=== PATIENT | male | born 1965 | race Caucasian/White ===

== ENCOUNTER 2019-07-28 10:28 | Day surgery (SDC) | payer OTHER, MEDICAID, SELFPAY ==
[2019-07-20 15:00] VITALS: BMI 36.3
[2019-07-28] VITALS (15 sets, daily range): BP systolic 104–134; BP diastolic 68–94; PULSE 77–104; RESP 12–19; TEMP 36.2–36.7; O2SAT 92–96; BMI 36.3
[2019-07-28] MEDS: LACTATED RINGERS 1,000 ML 100 ML IV ×2 (10:42→12:07)
--- NOTE | 2019-07-28 10:51 | PM.PREOP ---
Pre-operative Note Interval Note History & Physical reviewed/Exam performed by Physician: Yes Changes to H&P: No
[2019-07-28] MEDS: CLINDAMYCIN 900 MG/50 ML PIGGYBACK 50 MG IV (11:18)
--- NOTE | 2019-07-28 11:55 | SUR.OPER ---
Supine on padded OR bed, head on pillow, arm padded and tucked at side, legs uncrossed, safety belt at thigh, tape over blanket over lower legs .
[2019-07-28] MEDS: BUPIVACAINE 0.25% (PF) VIAL 30 ML INJ (12:01)
--- NOTE | 2019-07-28 13:54 | PM.OP.1 ---
Operative Date/Time/Diagnoses Date of procedure: 07/28/19 Time of procedure: 13:54 Pre-op diagnosis: Umbilical hernia Recurring left inguinal hernia Post-op diagnosis: same Procedure & Clinicians Procedure: Laparoscopic repair of recurrent left inguinal, open umbilical hernia repair with Same procedure as scheduled: Yes Indications: This is a 54-year-old male with pressure prior left inguinal hernia repair with mesh who presents with a recurrence. In addition he has a umbilical hernia symptomatic. Surgeon: Best Keith Anesthesia Type: General Operative Notes Findings: Direct left inguinal hernia. small umbilical hernia less than 2 cm. Estimated Blood Loss (mL): 20 Procedure in detail: The patient was brought to the operating room and placed supine on the table. Bilateral sequential compression devices were applied. General anesthesia was induced and they were intubated with an endotracheal tube. A rajan cath was placed in sterile fashion. They received 900g clindaymycin prior to skin incision. They were prepped and draped in sterile fashion. A time out was performed to ensure the correct patient, procedure and necessary equipment within the operating room. The skin was infiltrated with 0.25% bupivicaine. A 1 cm infram umbilical midline incision was made. The umbilical stalk was elevated the fascia sharply incised and the abdomen entered traumatically. A 10mm balloon port was placed and pneumoperitoneum was established at 15mm Hg. Inspection of the abdomen demonstrated no evidence of injury upon entry. Two 5 mm ports were then placed under direct visualization in the right and left lower quadrant lateral to the rectus muscle. A left direct hernia was observed. There was no major right inguinal hernia. Mesh from the previous left inguinal hernia repair had caused signficant inflamatory process and this required meticulous dissection to fully expose. The vas deferns the spermatic vessels were identified and protected. The peritoneum 4 cm superior to the deep inguinal ring between the medial umbilical ligament and the anterior superior iliac spine was incised. The peritoneal flap was retracted and the preperitoneal tissue was dissected off the flap beginning lateral to the inferior epigastric artery and towards the ASIS and to posterior limit of the psoas muscle to develop the lateral aspect of the pocket. Next the peritoneum medial to the inferior epigastric was mobilized towards the median umbilical ligament to develop the medial aspect of the pocket and the direct defect was reduced. The space of Retzius was fully dissected such that the Gregor's ligament and the pubic symphysis were visible. Next, the peritoneum was mobilized off the the spermatic vessels and vas deferns. A large Bard 3D Max mesh was then placed into the abdomen and positioned such that the myopectineal orifice was completely covered with good overlap on all sides. The mesh was anchored to the pubic tubercle and to Gregor?s ligament. The peritoneal flap was then repositioned back to its original position and tacks were used to anchor it in position such that no bowel could herniate into the preperitoneal space. The area was examined for hemostasis. The 5mm trocars were removed under direct visualization and pneumoperitoneum was deflated through the umbilical trocar. The umbilical hernia was identified and was dissected off the umbilicus and circumferentially. The sac was reduced into the abdomen and the fascia was cleared from above.. The fascial edges were then reapproximated with a [id number] 0 PDS suture. The subcutaneous tissues were reapproximated using 3 0 Vicryl skin closed with 4 0 Monocryl upon by the application of Dermabond and Steri-Strips. Sponge instrument count at the end of the operation was correct. Patient tolerated procedure well was extubated and transferred to postoperative care unit in stable condition. The fascia at the umbilicus was closed with 0-Vicryl in figure of 8 fashion, skin closed with 4-0 Monocyl followed by Dermabond. The sponge and instrument count at the end of the case was correct. Both testicles were entirely within the scrotum at the end of the case. The patient emerged from anesthsia was extubated and transferred to recovery in stable condition. Complications: none Post-operative Condition: stable Disposition: same day surgery
[2019-07-28] MEDS: fentaNYL 100 MCG/2 ML INJ IV ×2 (14:10→14:35)
[2019-07-28] MEDS: OXYCODONE/ACETAMINOPHEN 5/325 TABLET 1 TAB PO (15:08)
[2019-07-28 16:13] LABS: Alanine Aminotransferase 48 IU/L (<50)
[2019-07-28 17:15] LABS: Hepatitis B Surface Antigen NEGATIVE s/c (NEGATIVE)
[2019-07-28 17:31] LABS: HIV 1 & 2 Ab/Ag 4th Gen Combo NEGATIVE (NEGATIVE); Hep C Virus Ab w/Reflex Quant NEGATIVE s/c (NEGATIVE)
[2019-07-30 15:22] LABS: Hepatitis B Surf Ab Qualitativ Nonreactive (Nonreactive)
== END 2019-07-28 15:40 | disposition home or self-care (01) ==
PROVIDERS: PCP Physician Assistant; Referring Provider Surgery; Visit Provider Surgery
PROC: 0YQ64ZZ Repair Left Inguinal Region, Percutaneous Endoscopic Approach (ICD-10-PCS; CPT 49651; principal; 2019-07-28 11:15)
PROC: (CPT 49651; 2019-07-28 11:15)
DX: K42.9 Umbilical hernia without obstruction or gangrene (principal); K40.91 Unilateral inguinal hernia, without obstruction or gangrene, recurrent
CPT/HCPCS: 49651; 49585; C1781; J2250; J2704; J3010

== ENCOUNTER 2022-09-10 11:43 | Emergency (ER) | payer OTHER, MEDICAID, SELFPAY ==
[2022-09-10 12:15] VITALS: BP 154/98; PULSE 89; RESP 17; TEMP 36.6; O2SAT 99
--- NOTE | 2022-09-10 12:22 | PC.NURSE ---
Pt reports foreign body accidentally stuck in rectum, unable to self remove. Constipation, only able to have minor bowel movements since.
--- NOTE | 2022-09-10 12:25 | DI.RAD.S_ITS ---
PROCEDURE: XR ACUTE ABDOMEN SERIES INDICATIONS: foreign body TECHNIQUE: One view chest and two views of the abdomen were acquired. COMPARISON: None. FINDINGS: Surgical changes and devices: None. Chest: Lungs are clear. Heart size is normal. No pleural effusions. No pneumoperitoneum. Abdomen: Bowel gas pattern is normal. No suspicious calcifications. Visualized solid organ contours appear normal. There is a linear radiodensity measuring 1.5 cm overlying the mid right hemiabdomen. Bones: No suspicious bony lesions. IMPRESSION: Linear radiodensity overlying the right mid hemiabdomen. Recommend correlation to potential foreign body. Dictated by: Kari Taylor M.D. on 09/10/2022 at 13:00 Approved by: Kari Taylor M.D. on 09/10/2022 at 13:03
--- NOTE | 2022-09-10 12:53 | DI.CT.S_ITS ---
PROCEDURE: CT ABDOMEN PELVIS WO CON INDICATIONS: Potential colonic foreign body, TECHNIQUE: Axial sections were acquired from the lung bases to the pubic symphysis. Coronal and sagittal reformats were performed. For radiation dose reduction, the following was used: automated exposure control, adjustment of mA and/or kV according to patient size. COMPARISON: [facility], CR, XR ACUTE ABDOMEN SERIES, 09/10/2022, 12:27. FINDINGS: Image quality: Excellent. Lung bases: Unremarkable. Heart: No significant findings. URINARY: Right Kidney: No stones or hydronephrosis. Right Ureter: No hydroureter. Left Kidney: No stones or hydronephrosis. Left Ureter: No hydroureter. Bladder: Normal wall thickness. No stones. ABDOMEN: Liver: Unremarkable. Gallbladder: Unremarkable. Biliary ducts: Unremarkable. Pancreas: Unremarkable. Spleen: Unremarkable. Adrenal Glands: Unremarkable. Stomach and Bowel: Stomach, small bowel loops, and colon are nonobstructive. There is a linear radiodensity corresponding to the radiodensity within the right hemiabdomen on x-ray seen on series 2, image 32. It appears to be extra luminal and may represent a surgical clip. Multiple linear radiodensities are noted in the lower right anterior pelvis also appearing to be extra luminal. Peritoneum: No abnormal intraperitoneal fluid. No free air. Ventral Wall: No hernia. Abdominal Nodes: No enlarged retroperitoneal or mesenteric lymph nodes. Vessels: Aorta and inferior vena cava are normal in size. PELVIS: Pelvic Organs: Unremarkable. Pelvic Nodes: Unremarkable. Miscellaneous: Bilateral fat containing inguinal hernias are present. Bones: Unremarkable. IMPRESSION: Focus of linear increased density in the anterior right hemiabdomen corresponding to x-ray abnormality may represent a surgical clip as it appears to be extra luminal in relation to bowel. Multiple foci of increased density are noted in the right anterior lower abdomen also suspected to be related to surgical clips as they appear to be extra luminal in relation to bowel. Dictated by: Kari Taylor M.D. on 09/10/2022 at 13:36 Approved by: Kari Taylor M.D. on 09/10/2022 at 13:49
--- NOTE | 2022-09-10 12:53 | ED_ITS ---
HPI - Skin/Abscess/Foreign Bdy General Chief complaint: Skin/Abscess/Foreign Body Stated complaint: unable to have a bowel movement Time Seen by Provider: 09/10/22 12:38 Source: patient Mode of arrival: Ambulatory Limitations: no limitations History of Present Illness HPI narrative: Patient is a 49-year-old male here for evaluation of concern for a rectal foreign body and unable to have bowel movement. He states that 3-5 days ago there was a sex toy that was placed in his rectum. He states that he fell asleep that night and has not been able to find it since then. He is unsure if it is still in his rectum/: Although he states that since that time he has been unable to have a bowel movement. No vomiting. No abdominal pain. He has had a hernia repair in the past but no other abdominal surgeries. No urinary symptoms. He did try enemas at home without any improvement. No fevers. Related Data Home Medications Medication Instructions Recorded Confirmed gabapentin 100 mg capsule 400 mg PO BID 07/01/19 08/06/19 lamotrigine 200 mg tablet See Rx Instructions .Route .COMPLEX 07/01/19 08/06/19 (Lamictal) trazodone 100 mg tablet 100 mg PO BEDTIME 07/01/19 08/06/19 alprazolam 0.5 mg tablet 0.5 mg PO DAILY 07/28/19 08/06/19 buspirone 10 mg tablet 10 mg PO DAILY 07/28/19 08/06/19 cetirizine 10 mg tablet 10 mg PO DAILY 07/28/19 08/06/19 cyclobenzaprine 10 mg tablet 10 mg PO TID 07/28/19 08/06/19 Previous Rx's Medication Instructions Recorded acetaminophen 325 mg capsule 650 mg PO QID PRN pain #60 caps 07/28/19 (Tylenol) oxycodone 5 mg tablet 5 mg PO Q6H PRN pain #40 tabs 07/28/19 oxycodone 5 mg tablet 5 mg PO Q4-6H PRN post surgical 07/31/19 pain #30 tabs Allergies Allergy/AdvReac Type Severity Reaction Status Date / Time penicillin G Allergy Intermediate RASH Verified 09/10/22 12:18 Review of Systems Constitutional Constitutional: Reports system reviewed and no additional complaints, except as documented Gastrointestinal Gastrointestinal: Reports system reviewed and no additional complaints, except as documented Genitourinary Genitourinary: Reports system reviewed and no additional complaints, except as documented Neurologic Neurologic: Reports system reviewed and no additional complaints, except as documented Patient History Medical History (Updated 09/10/22 @ 14:04 by Rell Stephens DO) Anxiety Bipolar 1 disorder Depression Hernia Shoulder arthritis Surgical History History of inguinal hernia repair Social History household members: family Smoking Status: Former smoker alcohol intake: never Smoking Status: Former smoker Substance Use Type: methamphetamine Exam Initial Vital Signs Initial Vital Signs: Vital Signs Temperature 98 F 09/10/22 12:15 Pulse Rate 89 09/10/22 12:15 Respiratory Rate 17 09/10/22 12:15 Blood Pressure 154/98 H 09/10/22 12:15 Pulse Oximetry 99 09/10/22 12:15 Oxygen Delivery Method Room Air 09/10/22 12:15 Const General: cooperative, comfortable and ill appearing [facility] Head: normal to inspection and normocephalic Resp Effort & Inspection: normal respiratory effort Auscultation: clear to auscultation bilaterally Cardio Rate: regular rate Rhythm: regular rhythm GI Inspection: normal to inspection and non-distended Palpation: soft, No firm and No tender Skin General: no rashes or lesions noted Neuro General: patient alert, patient awake and moves all extremities Extrem General: capillary refill normal Course Orders Ordered: ED Orders 09/10/22 12:25 XR acute abdomen series Stat 09/10/22 12:53 CT abdomen pelvis wo con Stat Discontinued Medications Lorazepam (Lorazepam 0.5 Mg Tablet) 1 mg PO NOW ONE Stop: 09/10/22 12:54 Last Admin: 09/10/22 13:10 Dose: 1 mg Documented By: MARCELL Vital Signs Vital signs: Vital Signs - 8 hr 09/10/22 12:15 Temperature 98 F Pulse Rate 89 Respiratory Rate 17 Blood Pressure 154/98 H Pulse Oximetry 99 Oxygen Delivery Method Room Air MDM - Skin/Abscess/Foreign Bdy Imaging Data Abdominal x-ray: Radiologist's Impression: PROCEDURE:? XR ACUTE ABDOMEN SERIES ? INDICATIONS:? foreign body ? TECHNIQUE:? One view chest and two views of the abdomen were acquired.? ? COMPARISON:? None. ? FINDINGS:? ? Surgical changes and devices:? None.? ? Chest:? Lungs are clear.? Heart size is normal.? No pleural effusions.? No pneumoperitoneum.? ? Abdomen:? Bowel gas pattern is normal.? No suspicious calcifications.? Visualized solid organ contours appear normal.? There is a linear radiodensity measuring 1.5 cm overlying the mid right hemiabdomen. ? Bones:? No suspicious bony lesions.? ? IMPRESSION:? Linear radiodensity overlying the right mid hemiabdomen.? Recommend correlation to potential foreign body. CT scan - abdomen/pelvis: Radiologist's Impression: PROCEDURE:? CT ABDOMEN PELVIS WO CON ? INDICATIONS:? Potential colonic foreign body, ? TECHNIQUE:? Axial sections were acquired from the lung bases to the pubic symphysis.? Coronal and sagittal reformats were performed.? For radiation dose reduction, the following was used: ?automated exposure control, adjustment of mA and/or kV according to patient size.? ? COMPARISON:? Loc[facility], CR, XR ACUTE ABDOMEN SERIES, 09/10/2022, 12:27. ? FINDINGS:? Image quality:? Excellent.? ? Lung bases:? Unremarkable.? ? Heart:? No significant findings. ? URINARY: Right Kidney: ? No stones or hydronephrosis.? Right Ureter:? No hydroureter.? ? Left Kidney: ? No stones or hydronephrosis. Left Ureter:? No hydroureter.? ? Bladder:? Normal wall thickness. No stones. ? ? ? ABDOMEN: Liver:? Unremarkable.? ? Gallbladder:? Unremarkable.? ? Biliary ducts:? Unremarkable.? ? Pancreas:? Unremarkable.? ? Spleen:? Unremarkable.? ? Adrenal Glands:? Unremarkable.? ? ? Stomach and Bowel:? Stomach, small bowel loops, and colon are nonobstructive.? There is a linear radiodensity corresponding to the radiodensity within the right lolly abdomen on x-ray seen on series 2, image 32. It appears to be extra luminal and may represent a surgical clip.? Multiple linear radiodensities are noted in the lower right anterior pelvis also appearing to be extra luminal. Peritoneum:? No abnormal intraperitoneal fluid.? No free air.? ? Ventral Wall: ? No hernia.? Abdominal Nodes:? No enlarged retroperitoneal or mesenteric lymph nodes.? Vessels:? Aorta and inferior vena cava are normal in size.? ? PELVIS: Pelvic Organs:? Unremarkable.? ? Pelvic Nodes: Unremarkable. Miscellaneous:? Bilateral fat containing inguinal hernias are present. ? Bones:? Unremarkable. ? IMPRESSION:? ? Focus of linear increased density in the anterior right hemiabdomen corresponding to x-ray abnormality may represent a surgical clip as it appears to be extra luminal in relation to bowel. ? Multiple foci of increased density are noted in the right anterior lower abdomen also suspected to be related to surgical clips as they appear to be extra luminal in relation to bowel. ? ? ? Dictated by: Kari Taylor M.D. on 09/10/2022 at 13:36 ? ? Approved by: Kari Taylor M.D. on 09/10/2022 at 13:49? MDM Narrative Medical decision making narrative: The x-ray was somewhat concerning about a foreign body in his right upper quadrant however on the CT scan these do appear to be extraluminal clips. He has no foreign body noted on the CT scan. He is no other signs of obstruction. Has a soft abdomen. No fevers. No urinary symptoms. No indication for antibiotics. No indication for surgical consultation. I did discuss this with the patient. He is obviously very anxious about the situation. We did discuss that we do not diagnosed constipation off of CT scans and that if he felt like he was constipated he could try laxatives at home. He was given return precautions. He expressed understanding and agreement. Discharge Plan Departure Patient Disposition: Home Clinical Impression: Constipation Instructions: DI for Constipation Activity Restrictions/Additional Instructions: On the CT scan there is no foreign body noted anywhere in the colon/abdomen. If you feel like your constipated you can try [id number] laxatives. Contact your primary doctor for a follow-up. Return to the emergency department for any new or worsening symptoms. Prescriptions: No Action lamotrigine [Lamictal] 200 mg tablet See Rx Instructions .ROUTE .COMPLEX Rx Instructions: 200 mg orally gabapentin 100 mg capsule 400 mg PO BID trazodone 100 mg tablet 100 mg PO BEDTIME oxycodone 5 mg tablet 5 mg PO Q4-6H PRN (Reason: post surgical pain) Qty: 30 0RF Rx Instructions: take 1-2 tabs every 4-6 hours as needed for post op pain. Wean off as soon as possible cyclobenzaprine 10 mg Tablet 10 mg PO TID cetirizine 10 mg Tablet 10 mg PO DAILY alprazolam 0.5 mg Tablet 0.5 mg PO DAILY buspirone 10 mg Tablet 10 mg PO DAILY oxycodone 5 mg tablet 5 mg PO Q6H PRN (Reason: pain) Qty: 40 0RF acetaminophen [Tylenol] 325 mg capsule 650 mg PO QID PRN (Reason: pain) Qty: 60 0RF Referrals: Ronit Dorman PA-C [Primary Care Provider] - Stand Alone Forms: Patient Portal/API
[2022-09-10] MEDS: LORazepam 0.5 MG TABLET 1 MG PO (13:10)
[2022-09-10 14:08] VITALS: BP 161/90; PULSE 65; RESP 18; O2SAT 99
== END 2022-09-10 14:09 | disposition home or self-care (01) ==
PROVIDERS: Emergency Provider Emergency Medicine; PCP Physician Assistant
DX: K59.00 Constipation, unspecified (principal); T18.5XXA Foreign body in anus and rectum, initial encounter
CPT/HCPCS: 74022; 74176; 99284

== ENCOUNTER 2022-09-12 21:31 | Emergency (ER) | payer OTHER, MEDICAID, SELFPAY ==
[2022-09-12 21:38] VITALS: BP 155/87; PULSE 90; RESP 28; TEMP 36.9; O2SAT 99; BMI 32.3
--- NOTE | 2022-09-12 21:46 | DI.RAD.S_ITS ---
PROCEDURE: XR CHEST 1V INDICATIONS: chest pain TECHNIQUE: One view of the chest was acquired. COMPARISON: None. FINDINGS: Surgical changes and devices: None. Lungs and pleura: Lungs are clear. No pleural effusions or pneumothorax. Mediastinum: Mediastinal contours appear normal. Heart size is normal. Bones and chest wall: No suspicious bony lesions. Overlying soft tissues appear unremarkable. IMPRESSION: 1. No acute cardiopulmonary disease. Dictated by: Edu Vargas M.D. on 09/12/2022 at 23:29 Approved by: Edu Vargas M.D. on 09/12/2022 at 23:29
[2022-09-12 22:40] LABS: PTT Partial Thromboplastin Tim 29 SECONDS (26-36)
[2022-09-12 22:54] LABS: Add Manual Diff / Slide Review NO; Basophils Absolute Auto 0 /uL (0-100); Basophils Percent Auto 0.4 % (0-2); Eosinophils Absolute Auto 200 /uL (0-450); Eosinophils Percent Auto 3.2 % (2-4); Hematocrit 40.9 % (41-53); Hemoglobin 13.6 g/dL (13.5-17.5); Lymphocytes Absolute Auto 1900 /uL (1100-4500); Lymphocytes Percent Auto 23.8 % (25-40); Mean Corpuscular HGB Conc 33.4 % (30-36); Mean Corpuscular Hemoglobin 30.6 PG (26-34); Mean Corpuscular Volume 91.8 fL (80-100); Monocytes Absolute Auto 600 /uL (0-900); Monocytes Percent Auto 8.1 % (3-14); Neutrophils Absolute Auto 5100 /uL (1500-7000); Neutrophils Percent Auto 64.5 % (50-75); Platelet Count 267 X10^3/uL (150-400); Red Blood Cell Count 4.45 X10^6/uL (4.5-5.9); Red Cell Distribution Width 14.4 % (11.6-14.8); White Blood Cell Count 7.9 X10^3/uL (4.5-11.0)
[2022-09-12 22:57] LABS: Alanine Aminotransferase 35 IU/L (<50); Albumin Globulin Ratio 1.3 (1.0-2.8); Alkaline Phosphatase 106 U/L (38-126); Aspartate Aminotransferase 29 IU/L (17-59); BUN Creatinine Ratio 18.6 (6-22); Bilirubin Total 0.3 mg/dL (0.2-1.3); Blood Urea Nitrogen 16 mg/dL (9-20); Carbon Dioxide 28 mmol/L (22-32); Chloride 102 mmol/L (98-107); Creatine Kinase 70 U/L (55-170); Estimated Glomerular Filt Rate > 60 mL/min (>60); Globulin 3.1 g/dL (1.7-4.1); Glucose 95 mg/dL (70-100); HEMOLYSIS 17 (0-50); Lipase 88 U/L (23-300); Potassium 4.1 mmol/L (3.4-5.1); Sodium 137 mmol/L (137-145); Total Protein 7.1 g/dL (6.3-8.2); Troponin I < 0.012 ng/mL (0.01-0.034)
[2022-09-13 01:26] LABS: Creatine Kinase 74 U/L (55-170)
[2022-09-13 01:39] LABS: Troponin I < 0.012 ng/mL (0.01-0.034)
--- NOTE | 2022-09-13 02:41 | ED.CHESTPAIN ---
HPI - Chest Pain General Chief Complaint: Chest Pain Stated Complaint: heart is beating out of his chest Time Seen by Provider: 09/12/22 22:45 Source: patient Mode of arrival: Ambulatory Limitations: no limitations History of Present Illness HPI narrative: 57-year-old male nonsmoker, prior illicit drug user (methamphetamines) presents with a chief complaint of the sensation of palpitations and racing heart. He specifically he states he felt like his heart was going to jump out of his chest. He denies any dizziness, weakness or lightheadedness. He admits that he is anxious because a few months ago he was told he might have coronary artery disease. He denies any significant caffeine, nicotine or alcohol use. He denies any shortness of breath, nausea or vomiting. Related Data Home Medications Medication Instructions Recorded Confirmed gabapentin 100 mg capsule 400 mg PO BID 07/01/19 08/06/19 lamotrigine 200 mg tablet See Rx Instructions .Route .COMPLEX 07/01/19 08/06/19 (Lamictal) trazodone 100 mg tablet 100 mg PO BEDTIME 07/01/19 08/06/19 alprazolam 0.5 mg tablet 0.5 mg PO DAILY 07/28/19 08/06/19 buspirone 10 mg tablet 10 mg PO DAILY 07/28/19 08/06/19 cetirizine 10 mg tablet 10 mg PO DAILY 07/28/19 08/06/19 cyclobenzaprine 10 mg tablet 10 mg PO TID 07/28/19 08/06/19 Previous Rx's Medication Instructions Recorded acetaminophen 325 mg capsule 650 mg PO QID PRN pain #60 caps 07/28/19 (Tylenol) oxycodone 5 mg tablet 5 mg PO Q6H PRN pain #40 tabs 07/28/19 oxycodone 5 mg tablet 5 mg PO Q4-6H PRN post surgical 07/31/19 pain #30 tabs Allergies Allergy/AdvReac Type Severity Reaction Status Date / Time penicillin G Allergy Intermediate RASH Verified 09/12/22 21:37 Review of Systems Review of Systems Narrative: GENERAL: Denies chills, fatigue, malaise, fever, sweats. HEENT: Denies sinus pain, ear pain, sore throat, difficulty swallowing, dizziness. RESPIRATORY: Denies dyspnea, cough, wheezing, hemoptysis, sputum. CARDIOVASCULAR: See HPI GASTROINTESTINAL: Denies nausea, vomiting, abdominal pain, diarrhea, constipation, melena. : Denies dysuria, frequency, incontinence, hematuria, urinary retention. MUSCULOSKELETAL: denies weakness, joint pain, or bony pain SKIN: Denies rash, skin lesions, or other NEUROLOGIC: Denies weakness, headache, numbness, change in speech, confusion, seizures, incoordination. PSYCHIATRIC: No concerning psychosocial issues. 12 point review of systems is negative except for those stated above Patient History Medical History (Updated 09/13/22 @ 02:52 by Kendall Zapata DO) Anxiety Bipolar 1 disorder Depression Hernia Shoulder arthritis Surgical History History of inguinal hernia repair Social History household members: family Smoking Status: Never smoker alcohol intake: never Smoking Status: Never smoker Substance Use Type: methamphetamine Exam Narrative Exam Narrative: GENERAL: [57] year old patient appears stated age. Well-developed patient, in mild distress. HEAD: Atraumatic. Normocephalic. EYES: Pupils equal round and reactive. Extraocular motions intact. No scleral icterus. No injection or drainage. ENT: Nose without bleeding, purulent drainage. Throat without erythema, tonsillar hypertrophy or exudate. Airway patent. NECK: Trachea midline. Non tender CARDIOVASCULAR: Regular rate and rhythm without murmurs, gallops, or rubs. RESPIRATORY: Clear to auscultation. Breath sounds equal bilaterally. No wheezes, rales, or rhonchi. GASTROINTESTINAL: Abdomen soft, non-tender, nondistended. EXTREMITIES: No edema or joint tenderness. BACK: Nontender without deformity or crepitance. No flank tenderness. NEURO: AOx3. SKIN: No rash or erythema of visible areas Initial Vital Signs Initial Vital Signs: Vital Signs Temperature 98.5 F 09/12/22 21:38 Pulse Rate 90 09/12/22 21:38 Respiratory Rate 28 H 09/12/22 21:38 Blood Pressure 155/87 H 09/12/22 21:38 Pulse Oximetry 99 09/12/22 21:38 Oxygen Delivery Method Room Air 09/12/22 21:38 Course Orders Ordered: Discontinued Medications Aspirin (Aspirin 81 Mg Chew Tab) 324 mg PO NOW ONE Stop: 09/12/22 21:47 Vital Signs Vital signs: Vital Signs - 8 hr 09/12/22 21:38 Temperature 98.5 F Pulse Rate 90 Respiratory Rate 28 H Blood Pressure 155/87 H Pulse Oximetry 99 Oxygen Delivery Method Room Air MDM - Chest Pain Lab Data 09/12/22 22:23 09/12/22 22:23 Labs: Lab Results 09/12/22 09/12/22 09/12/22 Range/Units 22:23 22:23 22:23 WBC 7.9 (4.5-11.0) X10^3/uL RBC 4.45 L (4.5-5.9) X10^6/uL Hgb 13.6 (13.5-17.5) g/dL Hct 40.9 L (41-53) % MCV 91.8 (80-100) fL MCH 30.6 (26-34) PG MCHC 33.4 (30-36) % RDW 14.4 (11.6-14.8) % Plt Count 267 (150-400) X10^3/uL Neut % (Auto) 64.5 (50-75) % Lymph % (Auto) 23.8 L (25-40) % Webb % (Auto) 8.1 (3-14) % Eos % (Auto) 3.2 (2-4) % Baso % (Auto) 0.4 (0-2) % Neut # (Auto) 5100 (6906-7128) /uL Lymph # (Auto) 1900 (7438-8255) /uL Webb # (Auto) 600 (0-900) /uL Eos # (Auto) 200 (0-450) /uL Baso # (Auto) 0 (0-100) /uL PT 11.0 (10.1-12.7) SECONDS INR 1.0 (0.9-1.3) APTT 29 (26-36) SECONDS Sodium 137 (137-145) mmol/L Potassium 4.1 (3.4-5.1) mmol/L Chloride 102 (98-107) mmol/L Carbon Dioxide 28 (22-32) mmol/L BUN 16 (9-20) mg/dL Creatinine 0.86 (0.66-1.25) mg/dL Estimated GFR > 60 (>60) mL/min BUN/Creatinine Ratio 18.6 (6-22) Glucose 95 (70-100) mg/dL Calcium 9.0 (8.4-10.2) mg/dL Magnesium 2.0 (1.6-2.3) mg/dL Total Bilirubin 0.3 (0.2-1.3) mg/dL AST 29 (17-59) IU/L ALT 35 (<50) IU/L Alkaline Phosphatase 106 (38-126) U/L Total Creatine Kinase 70 (55-170) U/L CK-MB (CK-2) TNP CK-MB (CK-2) Rel Index TNP Troponin I < 0.012 (0.01-0.034) ng/mL Total Protein 7.1 (6.3-8.2) g/dL Albumin 4.0 (3.5-5.0) g/dL Globulin 3.1 (1.7-4.1) g/dL Albumin/Globulin Ratio 1.3 (1.0-2.8) Lipase 88 (23-300) U/L 09/13/22 Range/Units 01:05 WBC (4.5-11.0) X10^3/uL RBC (4.5-5.9) X10^6/uL Hgb (13.5-17.5) g/dL Hct (41-53) % MCV (80-100) fL MCH (26-34) PG MCHC (30-36) % RDW (11.6-14.8) % Plt Count (150-400) X10^3/uL Neut % (Auto) (50-75) % Lymph % (Auto) (25-40) % Webb % (Auto) (3-14) % Eos % (Auto) (2-4) % Baso % (Auto) (0-2) % Neut # (Auto) (1204-2202) /uL Lymph # (Auto) (5431-9227) /uL Webb # (Auto) (0-900) /uL Eos # (Auto) (0-450) /uL Baso # (Auto) (0-100) /uL PT (10.1-12.7) SECONDS INR (0.9-1.3) APTT (26-36) SECONDS Sodium (137-145) mmol/L Potassium (3.4-5.1) mmol/L Chloride (98-107) mmol/L Carbon Dioxide (22-32) mmol/L BUN (9-20) mg/dL Creatinine (0.66-1.25) mg/dL Estimated GFR (>60) mL/min BUN/Creatinine Ratio (6-22) Glucose (70-100) mg/dL Calcium (8.4-10.2) mg/dL Magnesium (1.6-2.3) mg/dL Total Bilirubin (0.2-1.3) mg/dL AST (17-59) IU/L ALT (<50) IU/L Alkaline Phosphatase (38-126) U/L Total Creatine Kinase 74 (55-170) U/L CK-MB (CK-2) TNP CK-MB (CK-2) Rel Index TNP Troponin I < 0.012 (0.01-0.034) ng/mL Total Protein (6.3-8.2) g/dL Albumin (3.5-5.0) g/dL Globulin (1.7-4.1) g/dL Albumin/Globulin Ratio (1.0-2.8) Lipase (23-300) U/L MDM Narrative Medical decision making narrative: [57] year old patient presents with racing heart Multiple etiologies for patient's symptoms considered including, but not limited to: [Anxiety, electrolyte abnormality, arrhythmia versus other] Prior Charts reviewed in our EMR Primary Historian: patient Labs reviewed and interpreted by myself: No significant abnormal findings, troponin negative x2, electrolytes and renal function within normal limits, no signs of leukocytosis or anemia Imaging reviewed: No acute process Patient's symptoms improved over duration of stay with above-stated therapies. History and physical exam are reassuring, no lab abnormalities, EKG notes a normal sinus rhythm and his heart rate is normal while on cardiac monitoring. Findings and discharge diagnosis discussed with patient/family followed by verbalization of understanding Return precautions discussed with patient/family whom verbalize understanding of diagnosis and plan Discharge Plan Departure Patient Disposition: Home Clinical Impression: Heart palpitations Instructions: DI for Arrhythmias Activity Restrictions/Additional Instructions: *You have been diagnosed with [palpitations. As we discussed your history and physical exam as well as labs, EKG and imaging is very reassuring and there is no evidence of heart attack electrolyte abnormality other significant finding] *What to do: *Please continue to take your regular medications as directed. * as we discussed if your concern about constipation there are multiple [id number] options such as Dulcolax, MiraLax, even magnesium citrate which can all be obtained at any local pharmacy without a prescription *Please follow up with your primary care provider in 2-3 days, call for an appointment. Let them know you were seen in the Emergency Department and that we ask that you be seen in follow up. We will electronically transmit a record of today's note if your PCP is in our system *If you do not have a primary care provider please contact the [facility] Resource line at [phone]. They will ask some questions about your medical history and help get you set up with a doctor in the community. *Return to Emergency Department if you should have any new, worsening or concerning symptoms, such as [fever greater than 101 F, shaking chills, worsening pain, persistent vomiting or other bothersome symptoms] Prescriptions: No Action lamotrigine [Lamictal] 200 mg tablet See Rx Instructions .ROUTE .COMPLEX Rx Instructions: 200 mg orally gabapentin 100 mg capsule 400 mg PO BID trazodone 100 mg tablet 100 mg PO BEDTIME oxycodone 5 mg tablet 5 mg PO Q4-6H PRN (Reason: post surgical pain) Qty: 30 0RF Rx Instructions: take 1-2 tabs every 4-6 hours as needed for post op pain. Wean off as soon as possible cyclobenzaprine 10 mg Tablet 10 mg PO TID cetirizine 10 mg Tablet 10 mg PO DAILY alprazolam 0.5 mg Tablet 0.5 mg PO DAILY buspirone 10 mg Tablet 10 mg PO DAILY oxycodone 5 mg tablet 5 mg PO Q6H PRN (Reason: pain) Qty: 40 0RF acetaminophen [Tylenol] 325 mg capsule 650 mg PO QID PRN (Reason: pain) Qty: 60 0RF Referrals: Ronit Dorman PA-C [Primary Care Provider] - Stand Alone Forms: Patient Portal/API
[2022-09-13 02:47] VITALS: BP 132/87; PULSE 87; RESP 22; O2SAT 97
[2022-09-13 02:57] VITALS: BP 128/87; PULSE 84; O2SAT 97
== END 2022-09-13 03:00 | disposition home or self-care (01) ==
PROVIDERS: Emergency Provider Emergency Medicine; PCP Physician Assistant
DX: R00.2 Palpitations (principal)
CPT/HCPCS: 36415; 71045; 80053; 82550; 83690; 83735; 84484; 85025; 85610; 85730; 93005; 99283; 99284

== ENCOUNTER 2023-05-07 16:21 | Emergency (ER) | payer OTHER, MEDICAID, SELFPAY ==
[2023-05-07 16:32] VITALS: BP 136/81; PULSE 92; RESP 16; TEMP 36.6; O2SAT 97; BMI 32.8
--- NOTE | 2023-05-07 17:06 | ED.EAR ---
HPI - Ear Problem <Kavon Dickinson PA-C - Last Filed: 05/07/23 17:13> General Chief complaint: Ear Stated complaint: something in rt ear Time Seen by Provider: 05/07/23 16:41 Source: patient Mode of arrival: Ambulatory History of Present Illness HPI Narrative: 58-year-old male presents to the ED with a sensation of some moving foreign objects inside his bilateral ears. Patient states that he was in an apartment with a lot of bugs such as gnats and that he feels there is flying insects inside bilateral ear canals. Patient denies any changes in hearing. Patient does endorse using a Q-tip to attempt getting the objects out. Related Data Home Medications Medication Instructions Recorded Confirmed gabapentin 100 mg capsule 400 mg PO BID 07/01/19 08/06/19 lamotrigine 200 mg tablet See Rx Instructions .Route .COMPLEX 07/01/19 08/06/19 (Lamictal) trazodone 100 mg tablet 100 mg PO BEDTIME 07/01/19 08/06/19 alprazolam 0.5 mg tablet 0.5 mg PO DAILY 07/28/19 08/06/19 buspirone 10 mg tablet 10 mg PO DAILY 07/28/19 08/06/19 cetirizine 10 mg tablet 10 mg PO DAILY 07/28/19 08/06/19 cyclobenzaprine 10 mg tablet 10 mg PO TID 07/28/19 08/06/19 Previous Rx's Medication Instructions Recorded acetaminophen 325 mg capsule 650 mg (2 x 325 mg) PO QID PRN 07/28/19 (Tylenol) pain #60 caps oxycodone 5 mg tablet 5 mg PO Q6H PRN pain #40 tabs 07/28/19 oxycodone 5 mg tablet 5 mg PO Q4-6H PRN post surgical 07/31/19 pain #30 tabs Allergies Allergy/AdvReac Type Severity Reaction Status Date / Time penicillin G Allergy Intermediate RASH Verified 05/07/23 16:36 Review of Systems <Kavon Dickinson PA-C - Last Filed: 05/07/23 17:13> Constitutional Constitutional: Denies chills, Denies fatigue, Denies fever(s), Denies frequent falls, Denies lethargy and Denies weakness Eyes Eyes: Denies change in vision, Denies eye discharge, Denies irritation and Denies loss of vision ENT Ears, Nose, Mouth, and Throat: Denies change in voice, Denies dizziness, Denies neck pain, Denies sore throat and Denies throat swelling Comments: Sensation of insects or moving objects inside bilateral ear canals Cardiovascular Cardiovascular: Denies chest pain, Denies irregular heart rhythm, Denies lightheadedness, Denies palpitations, Denies dyspnea, Denies dyspnea on exertion and Denies orthopnea Respiratory Respiratory: Denies cough, Denies dyspnea, Denies dyspnea on exertion and Denies wheezing Gastrointestinal Gastrointestinal: Denies abdominal pain, Denies change in bowel habits, Denies diarrhea, Denies nausea and Denies vomiting Musculoskeletal Musculoskeletal: Denies neck pain and Denies numbness Integumentary/Breasts Skin/Breast: Denies pruritus, Denies erythema, Denies rash and Denies wounds Neurologic Neurologic: Denies behavioral changes, Denies confusion, Denies dizziness, Denies frequent falls, Denies loss of vision, Denies numbness and Denies weakness Psychiatric Psychiatric: Denies anxiety, Denies behavioral changes, Denies confusion, Denies depression, Denies homicidal ideation and Denies suicidal ideation Endocrine Endocrine: Denies fatigue, Denies flushing and Denies palpitations Hematologic/Lymphatic Hematologic/Lymphatic: Denies easy bruising Allergic/Immunologic Allergic/Immunologic: Denies urticaria, Denies throat swelling and Denies wheezing Patient History <Kavon Dickinson PA-C - Last Filed: 05/07/23 17:13> Medical History (Updated 05/07/23 @ 17:04 by Kavon Dickinson PA-C) Bipolar 1 disorder Hernia Anxiety Depression Shoulder arthritis Surgical History History of inguinal hernia repair Social History household members: family Smoking Status: Never smoker alcohol intake: never Smoking Status: Never smoker Substance Use Type: marijuana and methamphetamine Exam <Kavon Dickinson PA-C - Last Filed: 05/07/23 17:13> Narrative Exam Narrative: Const General:?cooperative, healthy appearing and comfortable [facility] Head:?normal to inspection Ears:?hearing grossly normal bilaterally; no foreign objects or insects noted in bilateral ear canals; there are 1-2 scabs in each ear canal consistent with trauma such as repetitive Q-tip use Nose:?external nose normal Face and sinus:?normal facial exam and sinuses nontender Mouth:?oral mucosae normal Throat:?posterior oropharynx normal Eyes General:?appearance normal, both eyes and all related structures Neck Neck:?normal visual inspection and no lymphadenopathy noted Resp Effort & Inspection:?normal respiratory effort Auscultation:?clear to auscultation bilaterally Cardio Rate:?regular rate Rhythm:?regular rhythm Neuro General:?patient alert, patient awake and patient oriented x3 Initial Vital Signs Initial Vital Signs: Vital Signs Temperature 97.8 F 05/07/23 16:32 Pulse Rate 92 H 05/07/23 16:32 Respiratory Rate 16 05/07/23 16:32 Blood Pressure 136/81 05/07/23 16:32 Pulse Oximetry 97 05/07/23 16:32 Oxygen Delivery Method Room Air 05/07/23 16:32 <Rell Stephens DO - Last Filed: 05/07/23 17:29> Initial Vital Signs Initial Vital Signs: Vital Signs Temperature 97.8 F 05/07/23 16:32 Pulse Rate 92 H 05/07/23 16:32 Respiratory Rate 16 05/07/23 16:32 Blood Pressure 136/81 05/07/23 16:32 Pulse Oximetry 97 05/07/23 16:32 Oxygen Delivery Method Room Air 05/07/23 16:32 Course <Kavon Dickinson PA-C - Last Filed: 05/07/23 17:13> Vital Signs Vital signs: Vital Signs - 8 hr 05/07/23 16:32 Temperature 97.8 F Pulse Rate 92 H Respiratory Rate 16 Blood Pressure 136/81 Pulse Oximetry 97 Oxygen Delivery Method Room Air <DO Mary Scott Last Filed: 05/07/23 17:29> Vital Signs Vital signs: Vital Signs - 8 hr 05/07/23 16:32 Temperature 97.8 F Pulse Rate 92 H Respiratory Rate 16 Blood Pressure 136/81 Pulse Oximetry 97 Oxygen Delivery Method Room Air Medical Decision Making <Kavon Dickinson PA-C - Last Filed: 05/07/23 17:13> MDM Narrative Medical decision making narrative: 58-year-old male presents to the ED with a sensation of some moving foreign objects inside his bilateral ears. Physical exam is consistent with some external ear canal trauma with a scab in both ear canals, most likely due to the repetitive use of Q-tips. One of the scabs was losing just to ensure that it is not a foreign body, and there was mild bleeding due to the dislodge scab. No foreign objects or insect identified in bilateral ears. Discussed findings with patient, recommend abstaining from Q-tip usage for the next several days to let his ear canals heal. Recommend follow-up with his PCP. ED return precautions discussed with patient. Patient verbalized understanding. Medical records reviewed: Yes Discharge Plan Departure Patient Disposition: Home Clinical Impression: Ear discomfort Qualifiers: Laterality: bilateral Qualified Code(s): H92.03 - Otalgia, bilateral Instructions: DI for Ear Drainage Activity Restrictions/Additional Instructions: You were evaluated in the ED for a sensation of something moving inside both ears. On examination, there appeared to be no insects or other foreign objects in both ears. There there are some small scabs in your ear canal which are likely due to irritation from using Q-tips. Please refrain from using Q-tips for the next several days as your ear canals heal up. Please follow-up with your PCP as soon as possible. Return to the ED if you have worsening symptoms. Prescriptions: No Action lamotrigine [Lamictal] 200 mg tablet See Rx Instructions .ROUTE .COMPLEX Rx Instructions: 200 mg orally gabapentin 100 mg capsule 400 mg PO BID trazodone 100 mg tablet 100 mg PO BEDTIME oxycodone 5 mg tablet 5 mg PO Q4-6H PRN (Reason: post surgical pain) Qty: 30 0RF Rx Instructions: take 1-2 tabs every 4-6 hours as needed for post op pain. Wean off as soon as possible cyclobenzaprine 10 mg Tablet 10 mg PO TID cetirizine 10 mg Tablet 10 mg PO DAILY alprazolam 0.5 mg Tablet 0.5 mg PO DAILY buspirone 10 mg Tablet 10 mg PO DAILY oxycodone 5 mg tablet 5 mg PO Q6H PRN (Reason: pain) Qty: 40 0RF acetaminophen [Tylenol] 325 mg capsule 650 mg PO QID PRN (Reason: pain) Qty: 60 0RF Referrals: Ronit Dorman PA-C [Primary Care Provider] - Stand Alone Forms: Patient Portal/API ED Sign-out <Rell Stephens DO - Last Filed: 05/07/23 17:29> Cosign ED Attending Cosignature Attestation: Dr Stephens Co-Sign Statement: I was available for consultation during this patient's emergency department visit. This chart is signed by myself for administrative purposes only. I did not have direct contact with this patient during this visit. They were seen independently by the APC.
== END 2023-05-07 17:10 | disposition home or self-care (01) ==
PROVIDERS: Emergency Provider Student in an Organized Health Care Education/Training Program; PCP Physician Assistant
DX: H92.03 Otalgia, bilateral (principal)
CPT/HCPCS: 99281

== ENCOUNTER 2023-06-11 15:46 | Emergency (ER) | payer OTHER, MEDICAID, SELFPAY ==
[2023-06-11 15:56] VITALS: BP 144/85; PULSE 100; RESP 18; TEMP 36.6; O2SAT 95; BMI 32.3
--- NOTE | 2023-06-11 15:59 | ED.EAR ---
HPI - Ear Problem <Belinda Garcia PA-C - Last Filed: 06/11/23 16:22> General Chief complaint: Ear Stated complaint: ear issues left hurts Time Seen by Provider: 06/11/23 15:58 Source: patient Mode of arrival: Ambulatory History of Present Illness HPI Narrative: Patient is a 58-year-old male with bipolar 1 presenting for evaluation of left ear discomfort. He was seen in the ED in April diagnosed with discomfort of bilateral ears. It was noted that he had some small scabs in both ear canals, likely from Q-tip overuse. He is presenting today with left-sided ear pain. He reports that he is concerned for possible ear mites due to having had a bug issue in his apartment. He states that he has multiple scabs over his head which have been bothering him. He states that he scratches them regularly and they do not seem to be healing. Related Data Home Medications Medication Instructions Recorded Confirmed gabapentin 100 mg capsule 400 mg PO BID 07/01/19 08/06/19 lamotrigine 200 mg tablet See Rx Instructions .Route .COMPLEX 07/01/19 08/06/19 (Lamictal) trazodone 100 mg tablet 100 mg PO BEDTIME 07/01/19 08/06/19 alprazolam 0.5 mg tablet 0.5 mg PO DAILY 07/28/19 08/06/19 buspirone 10 mg tablet 10 mg PO DAILY 07/28/19 08/06/19 cetirizine 10 mg tablet 10 mg PO DAILY 07/28/19 08/06/19 cyclobenzaprine 10 mg tablet 10 mg PO TID 07/28/19 08/06/19 Previous Rx's Medication Instructions Recorded acetaminophen 325 mg capsule 650 mg (2 x 325 mg) PO QID PRN 07/28/19 (Tylenol) pain #60 caps oxycodone 5 mg tablet 5 mg PO Q6H PRN pain #40 tabs 07/28/19 oxycodone 5 mg tablet 5 mg PO Q4-6H PRN post surgical 07/31/19 pain #30 tabs Allergies Allergy/AdvReac Type Severity Reaction Status Date / Time penicillin G Allergy Intermediate RASH Verified 06/11/23 15:56 Review of Systems <Belinda Garcia PA-C - Last Filed: 06/11/23 16:22> Review of Systems Narrative: See HPI Patient History <Belinda Garcia PA-C - Last Filed: 06/11/23 16:22> Medical History (Updated 06/11/23 @ 16:19 by Belinda Garcia PA-C) Bipolar 1 disorder Hernia Anxiety Depression Shoulder arthritis Surgical History History of inguinal hernia repair Social History household members: family Smoking Status: Never smoker alcohol intake: never Smoking Status: Never smoker Substance Use Type: former substance user Exam <Belinda Garcia PA-C - Last Filed: 06/11/23 16:22> Initial Vital Signs Initial Vital Signs: Vital Signs Temperature 97.8 F 06/11/23 15:56 Pulse Rate 100 H 06/11/23 15:56 Respiratory Rate 18 06/11/23 15:56 Blood Pressure 144/85 H 06/11/23 15:56 Pulse Oximetry 95 06/11/23 15:56 Oxygen Delivery Method Room Air 06/11/23 15:56 GENERAL: 58 year old patient appears stated age. Well-developed patient, he is quite anxious. HEAD: Normocephalic, small scabs present all over head, head is close shaved EYES: Pupils equal round No scleral icterus. No injection or drainage. Ear: Dark scab on inferior aspect of left canal, no insect noted on left or right ear canal, TMs intact bilaterally pearly post with good cone of light. There was also a scab present in the base of the layo of left ear, wound appears shallow with no evidence of fluctuance or exudate, patient has no bilateral mastoid tenderness present. Equal hearing bilaterally. NECK: Trachea midline, supple RESPIRATORY: Speaking comfortably normal tone of voice without any increased work of breathing. NEURO: AOx3. SKIN: No rash or erythema of visible areas <Rell Stephens DO - Last Filed: 06/11/23 16:40> Initial Vital Signs Initial Vital Signs: Vital Signs Temperature 97.8 F 06/11/23 15:56 Pulse Rate 100 H 06/11/23 15:56 Respiratory Rate 18 06/11/23 15:56 Blood Pressure 144/85 H 06/11/23 15:56 Pulse Oximetry 95 06/11/23 15:56 Oxygen Delivery Method Room Air 06/11/23 15:56 Course <Belinda Garcia PA-C - Last Filed: 06/11/23 16:22> Orders Ordered: Discontinued Medications Bacitracin (Bacitracin Oint 0.9 Gm Pckt) 1 applic TOP NOW ONE Stop: 06/11/23 16:11 Last Admin: 06/11/23 16:12 Dose: 1 applic Documented By: KATIE Vital Signs Vital signs: Vital Signs - 8 hr 06/11/23 15:56 Temperature 97.8 F Pulse Rate 100 H Respiratory Rate 18 Blood Pressure 144/85 H Pulse Oximetry 95 Oxygen Delivery Method Room Air <Rell Stephens DO - Last Filed: 06/11/23 16:40> Orders Ordered: Discontinued Medications Bacitracin (Bacitracin Oint 0.9 Gm Pckt) 1 applic TOP NOW ONE Stop: 06/11/23 16:11 Last Admin: 06/11/23 16:12 Dose: 1 applic Documented By: KATIE Vital Signs Vital signs: Vital Signs - 8 hr 06/11/23 15:56 Temperature 97.8 F Pulse Rate 100 H Respiratory Rate 18 Blood Pressure 144/85 H Pulse Oximetry 95 Oxygen Delivery Method Room Air Medical Decision Making <Belinda Garcia PA-C - Last Filed: 06/11/23 16:22> [facility] Narrative Medical decision making narrative: Patient is a 58-year-old male presenting for evaluation of a sensation of discomfort in his left ear and concern for possible bugs being present in his ear. He states it is worse on the left than the right. He was seen for a similar complaint earlier April. Physical examination of ears does not show any evidence of swelling, erythema or exudate. However there is a superficial scab noted in the layo of left ear as well as a scab noted inside the canal of left ear. I recommend he apply bacitracin to the scab in the external aspect of left ear. Advised him to follow up for further evaluation if it should become erythematous, swollen or worsen in pain. He is agreeable with this plan of care and will follow up as needed. Multiple etiologies for patient's symptoms considered including, but not limited to: Foreign body in ear, otitis externa, otitis media Prior Charts reviewed: ER visit 05/07/2023 Patient's symptoms improved over duration of stay with above-stated therapies. Findings and discharge diagnosis discussed with patient/family followed by verbalization of understanding Return precautions discussed with patient/family whom verbalize understanding of diagnosis and plan Discharge Plan Departure Patient Disposition: Home Clinical Impression: Discomfort in ear auricle Qualifiers: Laterality: left Qualified Code(s): H92.02 - Otalgia, left ear Activity Restrictions/Additional Instructions: Thank you for coming in today for your care. Physical examination shows that you do not have any insects in either of your ear canals. There is a scab present on the bottom of your left ear canal. We also discussed a another shallow scab present in the curve of your outer ear. It is reasonable that this may be causing use some discomfort. I recommend applying bacitracin or Neosporin to this scab twice a day. I also advised you to decrease the amount that you clean her ears with soap and water as this may cause increased dryness. Please follow up with her primary care provider if the scab continues not to heal. Please monitor your symptoms and follow up in the ER if he should develop increased redness swelling, significant pain in left ear, fever chills or other worsening symptoms. You may take Tylenol or ibuprofen at home to help with the pain. It was a pleasure meeting you. Prescriptions: No Action lamotrigine [Lamictal] 200 mg tablet See Rx Instructions .ROUTE .COMPLEX Rx Instructions: 200 mg orally gabapentin 100 mg capsule 400 mg PO BID trazodone 100 mg tablet 100 mg PO BEDTIME oxycodone 5 mg tablet 5 mg PO Q4-6H PRN (Reason: post surgical pain) Qty: 30 0RF Rx Instructions: take 1-2 tabs every 4-6 hours as needed for post op pain. Wean off as soon as possible cyclobenzaprine 10 mg Tablet 10 mg PO TID cetirizine 10 mg Tablet 10 mg PO DAILY alprazolam 0.5 mg Tablet 0.5 mg PO DAILY buspirone 10 mg Tablet 10 mg PO DAILY oxycodone 5 mg tablet 5 mg PO Q6H PRN (Reason: pain) Qty: 40 0RF acetaminophen [Tylenol] 325 mg capsule 650 mg PO QID PRN (Reason: pain) Qty: 60 0RF Referrals: Ronit Dorman PA-C [Primary Care Provider] - Stand Alone Forms: Patient Portal/API ED Sign-out <Rell Stephens, - Last Filed: 06/11/23 16:40> Cosign ED Attending Cosignature Attestation: Dr Stephens Co-Sign Statement: I was available for consultation during this patient's emergency department visit. This chart is signed by myself for administrative purposes only. I did not have direct contact with this patient during this visit. They were seen independently by the APC.
[2023-06-11] MEDS: BACITRACIN OINT 0.9 GM PCKT 1 APPLIC TOP (16:12)
== END 2023-06-11 16:20 | disposition home or self-care (01) ==
PROVIDERS: Emergency Provider Physician Assistant; PCP Physician Assistant
DX: H92.02 Otalgia, left ear (principal)
CPT/HCPCS: 99282

== ENCOUNTER 2024-01-26 08:41 | Emergency (ER) | payer OTHER, MEDICAID, SELFPAY ==
[2024-01-26 08:48] VITALS: BP 132/93; PULSE 84; RESP 18; TEMP 36.5; O2SAT 95; BMI 32.3
[2024-01-26 08:57] VITALS: PULSE 78
--- NOTE | 2024-01-26 09:02 | DI.RAD.S_ITS ---
PROCEDURE: XR KNEE RT 3V INDICATIONS: pain to right knee TECHNIQUE: 3 views of the knee were acquired. COMPARISON: None. FINDINGS: Bones: No fractures or dislocations. Moderate tricompartmental osteoarthritis is seen with joint space narrowing, subchondral sclerosis and marginal osteophyte formation. No patellar subluxation. No suspicious bony lesions. Soft tissues: Small to moderate suprapatellar joint effusion. No suspicious soft tissue calcifications. IMPRESSION: True or dislocation. Moderate tricompartmental osteoarthritis and small to moderate suprapatellar joint effusion. Dictated by: Ronak Anthony M.D. on 01/26/2024 at 9:37 Approved by: Ronak Anthony M.D. on 01/26/2024 at 9:40
--- NOTE | 2024-01-26 09:02 | ED_ITS ---
HPI - Extremity Problem General Chief complaint: Extremity Problem,Nontraumatic Stated complaint: Rt knee injury Time Seen by Provider: 01/26/24 08:58 Source: patient Mode of arrival: Wheelchair History of Present Illness HPI Narrative: patient with a past medical history of bipolar, comes into the ED from home for evaluation of right knee pain ongoing or persistent for the past several months. He states that he noticed this when he was moving/lifting heavy objects. He states that since then he has had intermittent pain to the right knee with walking. He denies any numbness weakness tingling or redness to the knee, he states he has an appointment with his PCP in several months but states that due to persistent symptoms that come into the ED for further evaluation treatment. He denies any other symptoms at this time. Related Data Home Medications Medication Instructions Recorded Confirmed gabapentin 100 mg capsule 400 mg PO BID 07/01/19 08/06/19 lamotrigine 200 mg tablet See Rx Instructions .Route .COMPLEX 07/01/19 08/06/19 (Lamictal) trazodone 100 mg tablet 100 mg PO BEDTIME 07/01/19 08/06/19 alprazolam 0.5 mg tablet 0.5 mg PO DAILY 07/28/19 08/06/19 buspirone 10 mg tablet 10 mg PO DAILY 07/28/19 08/06/19 cetirizine 10 mg tablet 10 mg PO DAILY 07/28/19 08/06/19 cyclobenzaprine 10 mg tablet 10 mg PO TID 07/28/19 08/06/19 Previous Rx's Medication Instructions Recorded acetaminophen 325 mg capsule 650 mg (2 x 325 mg) PO QID PRN 07/28/19 (Tylenol) pain #60 caps oxycodone 5 mg tablet 5 mg PO Q6H PRN pain #40 tabs 07/28/19 oxycodone 5 mg tablet 5 mg PO Q4-6H PRN post surgical 07/31/19 pain #30 tabs naproxen 500 mg tablet (Naprosyn) 500 mg PO BID #21 tabs 01/26/24 naproxen 500 mg tablet (Naprosyn) 500 mg PO BID PRN pain #14 tabs 01/26/24 Allergies Allergy/AdvReac Type Severity Reaction Status Date / Time penicillin G Allergy Intermediate RASH Verified 01/26/24 08:56 Review of Systems Review of Systems Narrative: HEENT: Denies headache, eye drainage, eye irritation, head trauma, sore throat, voice change Cardiovascular: Denies any chest pain, palpitations, shortness of breath, tachycardia Respiratory: Denies any shortness of breath, cough, wheeze, stridor GI/: Denies any abdominal pain, nausea, vomiting, diarrhea, bright red blood per rectum, melanotic stools, urinary frequency, urinary retention, dysuria, hematuria MSK: positive for right knee pain Skin: Denies any rashes, lesions, discoloration Neuro: Denies any headache, lightheadedness, dizziness, fainting, weakness Psych: Denies SI/HI Patient History Medical History (Updated 01/26/24 @ 10:48 by Dung Wong DO) Bipolar 1 disorder Hernia Anxiety Depression Shoulder arthritis Surgical History History of inguinal hernia repair Social History household members: family Smoking Status: Never smoker alcohol intake: never Smoking Status: Never smoker Substance Use Type: former substance user, marijuana and methamphetamine Exam Narrative Exam Narrative: General: Cooperative, comfortable, well-developed, not in acute distress HEENT: Normocephalic, atraumatic, PERRLA, normal sclera, eyelids normal, Neck: Active full range of motion, atraumatic Chest: Normal to inspection, negative crepitus, no overlying erythema ecchymosis Respiratory: Normal respiratory effort, not in acute respiratory distress, clear to auscultation bilaterally negative cough, wheeze, tachypnea, rhonchi, rales Cardiology: Regular rate rhythm negative gallop, murmur, rubs GI/: Normal to inspection, soft, nonrigid, no tenderness to palpation, exam deferred MSK: Full range of active range of motion of all 4 extremities, atraumatic, no overlying erythema ecchymosis or any other signs of gross deformities patient is able to stand bear weight ambulate unassisted here in the emergency department Skin: No rashes lesions noted Neuro: Alert awake oriented x3, moves all 4 extremities spontaneously, cranial nerves intact, able to answer all questions appropriately follows commands appropriately Psych: Cooperative, negative suicidal or homicidal ideations Initial Vital Signs Initial Vital Signs: Vital Signs Temperature 97.7 F 01/26/24 08:48 Pulse Rate 84 01/26/24 08:48 Respiratory Rate 18 01/26/24 08:48 Blood Pressure 132/93 H 01/26/24 08:48 Pulse Oximetry 95 01/26/24 08:48 Oxygen Delivery Method Room Air 01/26/24 08:48 Course Orders Ordered: ED Orders 01/26/24 09:02 XR knee RT 3V Stat Vital Signs Vital signs: Vital Signs - 8 hr 01/26/24 08:48 01/26/24 08:57 01/26/24 10:53 Temperature 97.7 F Pulse Rate 84 79 Pulse Rate [Right Posterior Tibial] 78 Respiratory Rate 18 18 Blood Pressure 132/93 H 125/79 Pulse Oximetry 95 95 Oxygen Delivery Method Room Air Room Air MDM - Extremity (Nontraumatic) Differential Diagnosis Differential diagnosis: Likely cellulitis and other ( acute fracture, arthritis) MDM Narrative Medical decision making narrative: patient is a 58-year-old male past medical history of bipolar came into the ED complaining of right knee pain ongoing and persistent for the past several months, states it started when he was lifting /moving a lot, states that he is very active and does have an appointment with her primary care doctor however this is in several months therefore decided come to ED for further evaluation treatment. On physical exam no acute findings or concerns for cellulitis, septic arthritis, x-ray showing mild arthritis, patient is able to stand bear weight ambulate unassisted here in the emergency department, the patient will be safe for discharge home with outpatient follow-up. Discharge Plan Departure Patient Disposition: Home Clinical Impression: Osteoarthritis Qualifiers: Osteoarthritis location: knee Osteoarthritis type: unspecified Laterality: right Qualified Code(s): M17.11 - Unilateral primary osteoarthritis, right knee Activity Restrictions/Additional Instructions: patient was instructed to follow up with primary care and orthopedic surgery for continued evaluation treatment of his symptoms Please read the discharge instructions sheet carefully and bring all papers to all doctor follow-up visits, as it may contain information that your doctor may want to see. Disease processes change and evolve, if your symptoms worsen or if you develop any new symptoms that are concerning to you please return for evaluation. Your evaluation today does not show any evidence of any life- threatening/serious illnesses requiring admission to the hospital or surgery. Please follow-up with your doctor for re-evaluation in approximately 1 day. Seek immediate medical attention for any worrisome symptoms. Prescriptions: New naproxen [Naprosyn] 500 mg tablet 500 mg PO BID PRN (Reason: pain) Qty: 14 0RF naproxen [Naprosyn] 500 mg tablet 500 mg PO BID Qty: 21 0RF No Action lamotrigine [Lamictal] 200 mg tablet See Rx Instructions .ROUTE .COMPLEX Rx Instructions: 200 mg orally gabapentin 100 mg capsule 400 mg PO BID trazodone 100 mg tablet 100 mg PO BEDTIME oxycodone 5 mg tablet 5 mg PO Q4-6H PRN (Reason: post surgical pain) Qty: 30 0RF Rx Instructions: take 1-2 tabs every 4-6 hours as needed for post op pain. Wean off as soon as possible cyclobenzaprine 10 mg Tablet 10 mg PO TID cetirizine 10 mg Tablet 10 mg PO DAILY alprazolam 0.5 mg Tablet 0.5 mg PO DAILY buspirone 10 mg Tablet 10 mg PO DAILY oxycodone 5 mg tablet 5 mg PO Q6H PRN (Reason: pain) Qty: 40 0RF acetaminophen [Tylenol] 325 mg capsule 650 mg PO QID PRN (Reason: pain) Qty: 60 0RF Referrals: Ronit Dorman PA-C [Primary Care Provider] - Jana Muller MD [Physician] - Stand Alone Forms: Patient Portal/API
[2024-01-26 10:53] VITALS: BP 125/79; PULSE 79; RESP 18; O2SAT 95
== END 2024-01-26 10:55 | disposition home or self-care (01) ==
PROVIDERS: Emergency Provider Student in an Organized Health Care Education/Training Program; PCP Physician Assistant
DX: M17.11 Unilateral primary osteoarthritis, right knee (principal)
CPT/HCPCS: 73562; 99283

== ENCOUNTER 2024-10-16 19:52 | Emergency (ER) | payer OTHER, SELFPAY ==
[2024-10-16] VITALS (9 sets, daily range): BP systolic 135–184; BP diastolic 93–107; PULSE 93–112; RESP 12–24; TEMP 36.7; O2SAT 93–97; BMI 32.3
--- NOTE | 2024-10-16 19:58 | EKG_ITS ---
[address] [address] Test Date: 2024-10-16 Pat Name: Jensen Michaels Department: Room: Gender: Male Rn Endocrinology: KARSTEN TALAVERA : 1965 Requested By: Order Number: [id number] Reading MD: Naun Luna MD Measurements Intervals [place]man Rate: 109 P: 26 MI: 170 QRS: -17 QRSD: 84 T: 37 QT: 336 QTc: 452 Interpretive Statements Sinus tachycardia Possible Left atrial enlargement Minimal voltage criteria for LVH, may be normal variant ( R in aVL ) Electronically Signed On 10-17-2024 14:07:32 PDT by Naun Luna MD
--- NOTE | 2024-10-16 20:08 | ED.CHESTPAIN ---
HPI - Chest Pain General Chief Complaint: Hypertension Stated Complaint: HTN after meth History of Present Illness HPI narrative: 59-year-old gentleman history of bipolar and substance abuse specifically methamphetamine was previously in drug rehab and doing well when he met some friends in town today and smoked meth and started to notice his blood pressure was going up and he got concerned and came to be evaluated. He denies chest pain, shortness of breath, headache, dizziness, or blurred vision. He he admits he made a mistake today smoking meth but denies suicidal or homicidal ideation seeing things or hearing voices. Other than what is stated 14 point review of system is negative Related Data Home Medications Medication Instructions Recorded Confirmed gabapentin 100 mg capsule 400 mg PO BID 07/01/19 08/06/19 lamotrigine 200 mg tablet See Rx Instructions .Route .COMPLEX 07/01/19 08/06/19 (Lamictal) trazodone 100 mg tablet 100 mg PO BEDTIME 07/01/19 08/06/19 alprazolam 0.5 mg tablet 0.5 mg PO DAILY 07/28/19 08/06/19 buspirone 10 mg tablet 10 mg PO DAILY 07/28/19 08/06/19 cetirizine 10 mg tablet 10 mg PO DAILY 07/28/19 08/06/19 cyclobenzaprine 10 mg tablet 10 mg PO TID 07/28/19 08/06/19 Previous Rx's Medication Instructions Recorded acetaminophen 325 mg capsule 650 mg (2 x 325 mg) PO QID PRN 07/28/19 (Tylenol) pain #60 caps oxycodone 5 mg tablet 5 mg PO Q6H PRN pain #40 tabs 07/28/19 oxycodone 5 mg tablet 5 mg PO Q4-6H PRN post surgical 07/31/19 pain #30 tabs naproxen 500 mg tablet (Naprosyn) 500 mg PO BID #21 tabs 01/26/24 naproxen 500 mg tablet (Naprosyn) 500 mg PO BID PRN pain #14 tabs 01/26/24 Allergies Allergy/AdvReac Type Severity Reaction Status Date / Time penicillin G Allergy Intermediate RASH Verified 01/26/24 08:56 Review of Systems Review of Systems ROS Unobtainable: All systems reviewed & are unremarkable except as noted in HPI and below Patient History Medical History (Updated 10/16/24 @ 22:45 by Naun Manriquez, DO) Bipolar 1 disorder Hernia Anxiety Depression Shoulder arthritis Surgical History History of inguinal hernia repair Social History household members: family Smoking Status: Never smoker alcohol intake: never Exam Narrative Exam Narrative: GENERAL: [59] year old patient appears stated age. Well-developed patient, in mild distress. HEAD: Atraumatic. Normocephalic. EYES: Pupils equal round and reactive. Extraocular motions intact. No scleral icterus. No injection or drainage. ENT: Nose without bleeding, purulent drainage. Throat without erythema, tonsillar hypertrophy or exudate. Airway patent. NECK: Trachea midline. Non tender CARDIOVASCULAR: Tachycardic Regular rate and rhythm without murmurs, gallops, or rubs. RESPIRATORY: Clear to auscultation. Breath sounds equal bilaterally. No wheezes, rales, or rhonchi. GASTROINTESTINAL: Abdomen soft, non-tender, nondistended. EXTREMITIES: No edema or joint tenderness. BACK: Nontender without deformity or crepitance. No flank tenderness. NEURO: AOx3. GCS 15 nonfocal neuro exam SKIN: No rash or erythema of visible areas Initial Vital Signs Initial Vital Signs: Vital Signs Temperature 98.0 F 10/16/24 20:04 Pulse Rate 110 H 10/16/24 20:04 Respiratory Rate 24 10/16/24 20:04 Blood Pressure 184/107 H 10/16/24 20:04 Pulse Oximetry 94 10/16/24 20:04 Oxygen Delivery Method Room Air 10/16/24 20:04 Scores HEART Score Heart Score history: Slightly Suspicious Heart Score EKG: Normal Heart Score Age: 45-64 years old Heart Score risk factors: 1-2 risk factors Heart Score troponin: < or = to normal limit Heart Score Total: 2 Course Orders Ordered: ED Orders 10/16/24 19:58 Complete Blood Count AUTO DIFF Stat Comprehensive Metabolic Panel Stat Lipase Stat Troponin & CK Cardiac Panel Stat 10/16/24 20:20 XR chest 1V Stat EKG-12 Lead Stat 10/16/24 22:02 Trop I [Troponin I] Stat Discontinued Medications Aspirin (Aspirin 81 Mg Chew Tab) 324 mg PO NOW ONE Stop: 04/25/25 20:21 Last Admin: 10/16/24 20:26 Dose: 324 mg Documented By: IFEANYI Lorazepam (Lorazepam 2 Mg/Ml Inj) 2 mg IV NOW ONE Stop: 10/16/24 20:21 Last Admin: 10/16/24 20:26 Dose: 2 mg Documented By: IFEANYI Vital Signs Vital signs: Vital Signs - 8 hr 10/16/24 20:04 10/16/24 20:32 10/16/24 21:00 Temperature 98.0 F Pulse Rate 110 H 112 H 101 H Respiratory Rate 24 21 12 Blood Pressure 184/107 H 165/100 H Pulse Oximetry 94 96 95 Oxygen Delivery Method Room Air Room Air 10/16/24 21:00 10/16/24 21:30 10/16/24 21:30 Temperature Pulse Rate 99 H Respiratory Rate 23 Blood Pressure 166/93 H 167/104 H Pulse Oximetry 93 Oxygen Delivery Method 10/16/24 22:00 10/16/24 22:00 10/16/24 22:04 Temperature Pulse Rate 99 H 97 H Respiratory Rate 15 16 Blood Pressure 170/104 H 145/93 H Pulse Oximetry 96 97 Oxygen Delivery Method Room Air MDM - Chest Pain Lab Data 10/16/24 19:58 10/16/24 19:58 Labs: Lab Results 10/16/24 Range/Units 19:58 WBC 7.4 (4.5-11.0) X10^3/uL RBC 4.44 L (4.5-5.9) X10^6/uL Hgb 13.9 (13.5-17.5) g/dL Hct 41.7 (41-53) % MCV 94.1 (80-100) fL MCH 31.3 (26-34) PG MCHC 33.3 (30-36) % RDW 14.4 (11.6-14.8) % Plt Count 261 (150-400) X10^3/uL Neut % (Auto) 76.4 H (50-75) % Lymph % (Auto) 15.0 L (25-40) % Yell % (Auto) 6.7 (3-14) % Eos % (Auto) 1.4 L (2-4) % Baso % (Auto) 0.5 (0-2) % Neut # (Auto) 5700 (3352-1382) /uL Lymph # (Auto) 1100 (7524-5532) /uL Yell # (Auto) 500 (0-900) /uL Eos # (Auto) 100 (0-450) /uL Baso # (Auto) 0 (0-100) /uL Sodium 138 (137-145) mmol/L Potassium 4.3 (3.4-5.1) mmol/L Chloride 104 (98-107) mmol/L Carbon Dioxide 26 (22-32) mmol/L BUN 16 (9-20) mg/dL Creatinine 0.77 (0.66-1.25) mg/dL Estimated GFR > 60 (>60) mL/min BUN/Creatinine Ratio 20.8 (6-22) Glucose 109 H (70-99) mg/dL Calcium 9.2 (8.4-10.2) mg/dL Total Bilirubin 0.3 (0.2-1.3) mg/dL AST 37 (17-59) IU/L ALT 32 (<50) IU/L Alkaline Phosphatase 91 (38-126) U/L Total Creatine Kinase 165 (55-170) U/L Troponin I < 0.012 (0.01-0.034) ng/mL Total Protein 7.2 (6.3-8.2) g/dL Albumin 4.3 (3.5-5.0) g/dL Globulin 2.9 (1.7-4.1) g/dL Albumin/Globulin Ratio 1.5 (1.0-2.8) Lipase 46 (23-300) U/L ECG Data Interpretation: Sinus Tach HR 109 KS 170 QRS [address]-t wave change No previous ekg to compare against MDM Narrative Medical decision making narrative: All lab work EKG chest x-ray vital signs nurse triage note medication list in all imaging studies and all previous ER visits reviewed. Patient given aspirin and Ativan 2 mg here IV. Heart score of 2. Differential diagnosis STEMI, NSTEMI, unstable angina, hypertensive urgency, emergency, anxiety, polysubstance abuse. Return with new or worsening symptoms and follow up with PCP next week regarding elevated blood pressure. Discharge Plan Departure Patient Disposition: Home Clinical Impression: Methamphetamine abuse, Blood pressure elevated without history of HTN Instructions: DI for High Blood Pressure Activity Restrictions/Additional Instructions: Return with new or worsening symptoms. Please follow up with her PCP next week regarding blood pressure recheck. Prescriptions: No Action lamotrigine [Lamictal] 200 mg tablet See Rx Instructions .ROUTE .COMPLEX Rx Instructions: 200 mg orally gabapentin 100 mg capsule 400 mg PO BID trazodone 100 mg tablet 100 mg PO BEDTIME oxycodone 5 mg tablet 5 mg PO Q4-6H PRN (Reason: post surgical pain) Qty: 30 0RF Rx Instructions: take 1-2 tabs every 4-6 hours as needed for post op pain. Wean off as soon as possible cyclobenzaprine 10 mg Tablet 10 mg PO TID cetirizine 10 mg Tablet 10 mg PO DAILY alprazolam 0.5 mg Tablet 0.5 mg PO DAILY buspirone 10 mg Tablet 10 mg PO DAILY oxycodone 5 mg tablet 5 mg PO Q6H PRN (Reason: pain) Qty: 40 0RF acetaminophen [Tylenol] 325 mg capsule 650 mg PO QID PRN (Reason: pain) Qty: 60 0RF naproxen [Naprosyn] 500 mg tablet 500 mg PO BID PRN (Reason: pain) Qty: 14 0RF naproxen [Naprosyn] 500 mg tablet 500 mg PO BID Qty: 21 0RF Referrals: Willy Coffman MD [Primary Care Provider] - Stand Alone Forms: Patient Portal/API/Survey
--- NOTE | 2024-10-16 20:20 | DI.RAD.S_ITS ---
PROCEDURE: XR CHEST 1V INDICATIONS: chest pain TECHNIQUE: One view of the chest was acquired. COMPARISON: [facility], CR, XR CHEST 1V, 09/12/2022, 22:08. FINDINGS: Surgical changes and devices: None. Lungs and pleura: Hazy right perihilar opacity. Streaky left basilar opacity. Mediastinum: Mediastinal contours appear normal. Heart size is normal. Bones and chest wall: No suspicious bony lesions. Overlying soft tissues appear unremarkable. IMPRESSION: Hazy right basilar opacity, either infection or atelectasis. Streaky left basilar atelectasis. Dictated by: Jesse Davis M.D. on 10/16/2024 at 21:10 Approved by: Jesse Davis M.D. on 10/16/2024 at 21:12
[2024-10-16 20:25] LABS: Add Manual Diff / Slide Review NO; Basophils Absolute Auto 0 /uL (0-100); Basophils Percent Auto 0.5 % (0-2); Eosinophils Absolute Auto 100 /uL (0-450); Eosinophils Percent Auto 1.4 % (2-4); Hematocrit 41.7 % (41-53); Hemoglobin 13.9 g/dL (13.5-17.5); Lymphocytes Absolute Auto 1100 /uL (1100-4500); Mean Corpuscular HGB Conc 33.3 % (30-36); Mean Corpuscular Hemoglobin 31.3 PG (26-34); Mean Corpuscular Volume 94.1 fL (80-100); Monocytes Absolute Auto 500 /uL (0-900); Monocytes Percent Auto 6.7 % (3-14); Neutrophils Absolute Auto 5700 /uL (1500-7000); Neutrophils Percent Auto 76.4 % (50-75); Platelet Count 261 X10^3/uL (150-400); Red Blood Cell Count 4.44 X10^6/uL (4.5-5.9); Red Cell Distribution Width 14.4 % (11.6-14.8); White Blood Cell Count 7.4 X10^3/uL (4.5-11.0)
[2024-10-16] MEDS: LORazepam 2 MG/ML INJ IV (20:26)
[2024-10-16] MEDS: ASPIRIN 81 MG CHEW TAB 324 MG PO (20:26)
[2024-10-16 20:35] LABS: Alanine Aminotransferase 32 IU/L (<50); Albumin 4.3 g/dL (3.5-5.0); Albumin Globulin Ratio 1.5 (1.0-2.8); Alkaline Phosphatase 91 U/L (38-126); Aspartate Aminotransferase 37 IU/L (17-59); BUN Creatinine Ratio 20.8 (6-22); Bilirubin Total 0.3 mg/dL (0.2-1.3); Blood Urea Nitrogen 16 mg/dL (9-20); Calcium 9.2 mg/dL (8.4-10.2); Carbon Dioxide 26 mmol/L (22-32); Chloride 104 mmol/L (98-107); Creatine Kinase 165 U/L (55-170); Estimated Glomerular Filt Rate > 60 mL/min (>60); Globulin 2.9 g/dL (1.7-4.1); Glucose 109 mg/dL (70-99); HEMOLYSIS < 15 (0-50); Lipase 46 U/L (23-300); Potassium 4.3 mmol/L (3.4-5.1); Sodium 138 mmol/L (137-145); Total Protein 7.2 g/dL (6.3-8.2)
[2024-10-16 20:46] LABS: Troponin I < 0.012 ng/mL (0.01-0.034)
[2024-10-16 22:36] LABS: Troponin I < 0.012 ng/mL (0.01-0.034)
== END 2024-10-16 22:59 | disposition home or self-care (01) ==
PROVIDERS: Emergency Provider Family Medicine; PCP Family Medicine
DX: F15.10 Other stimulant abuse, uncomplicated (principal); R03.0 Elevated blood-pressure reading, without diagnosis of hypertension
CPT/HCPCS: 36415; 71045; 80053; 82550; 83690; 84484; 85025; 93005; 93010; 96374; 99284; J2060